=== PATIENT | female | born 1990 ===

== ENCOUNTER 2018-10-20 09:37 | Emergency (ER) | payer SELFPAY ==
[~2018-10-20] VITALS: Ht 165.1 cm; Wt 83.4 kg
--- NOTE | 2018-10-20 09:44 | NUR ---
Called. NA x1.
--- NOTE | 2018-10-20 09:47 | NUR ---
NIL x1 @[phone]
--- NOTE | 2018-10-20 09:56 | NUR ---
Called. NA x 3.
[2018-10-20 09:57] VITALS: BP 125/84
[2018-10-20] MEDS ORDERED: LIDOCAINE-MPF 1%, 5ML ONE (10:18)
[2018-10-20] MEDS ORDERED: LIDOCAINE-MPF 1%, 5ML INFIL ONE (10:30)
== END 2018-10-20 10:37 | disposition home or self-care (01) ==
LOC: ED 10:17
DX: L02.415 Cutaneous abscess of right lower limb (principal)
CPT/HCPCS: 10060